=== PATIENT | female | born 1945 | race Caucasian/White ===

== ENCOUNTER 2017-04-17 01:51 | Emergency (ER) | payer MEDICARE, SELFPAY ==
[2017-04-17] MEDS ORDERED: Ketorolac Tromethamine 30 MG/ML VIAL ONE (02:13)
== END 2017-04-17 02:26 | disposition home or self-care (01) ==
LOC: MADERS 01:51
DX: M17.11 Unilateral primary osteoarthritis, right knee (principal); I25.10 Atherosclerotic heart disease of native coronary artery without angina pectoris; F17.210 Nicotine dependence, cigarettes, uncomplicated
CPT/HCPCS: 96372; J1885

== ENCOUNTER 2017-04-28 23:37 | Emergency (ER) | payer MEDICARE, SELFPAY ==
[~2017-04-28 23:37] MED LIST: Donnatal Elixir 16.2 MG/5 ML UDCUP ONE
[2017-04-29] MEDS ORDERED: Mag-Al Plus 1200 MG/1200 MG/120 MG/30 ML UDCUP ONE (00:40)
[2017-04-29] MEDS ORDERED: Lidocaine Viscous Sol 2% 15 ml UD Cup ONE (00:40)
[2017-04-29] MEDS ORDERED: Donnatal Elixir 16.2 MG/5 ML UDCUP ONE (00:40)
== END 2017-04-29 00:50 | disposition home or self-care (01) ==
LOC: MADERS 23:37
DX: I25.10 Atherosclerotic heart disease of native coronary artery without angina pectoris (principal); E03.9 Hypothyroidism, unspecified; E78.5 Hyperlipidemia, unspecified; F17.210 Nicotine dependence, cigarettes, uncomplicated
CPT/HCPCS: 93005; 99407

== ENCOUNTER 2017-08-30 18:40 | Emergency (ER) | payer MEDICARE ==
--- NOTE | 2017-08-30 20:13 | RAD ---
RIGHT ANKLE THREE VIEWS: INDICATIONS: Right ankle pain. Joint pain. FINDINGS: there is soft tissue swelling, notably at the medial aspect. The mortise is intact. Enthesophyte fo rmation at the plantar aspect of the calcaneus is seen. No fracture. IMPRESSION: 1. No acute osseous abnormality of the right ankle. 2. There is soft tissue swelling. Correlate clinically. POS: JESSICA
[2017-08-30] MEDS ORDERED: HYDROcodone/Acetaminophen 5/325 mg Tablet ONE (20:22)
[2017-08-30 20:44] LABS: Hemoglobin 13.8 g/dL (12.0-16.0); Lymphocytes 17 % (21-51); MDiff Complete? YES; Mean Corpuscular HGB CONC 33.1 g/dL (32.0-36.0); Mean Corpuscular Hemoglobin 30.9 pg (27.0-31.0); Mean Corpuscular Volume 93.2 fl (81.0-99.0); Mean Platelet Volume 6.8 fL (7.4-10.4); Monocytes 3 % (0-10); Neutrophil 80 % (42-75); PLT Morphology Comment Appears Adequate; Platelet Count 327 thou/uL (130-400); RBC Distribution Width 12.6 % (11.5-14.5); Red Blood Cell (RBC) Count 4.48 mill/uL (4.20-5.40); White Blood Cell (WBC) Count 11.9 thou/uL (4.8-10.8)
[2017-08-30 20:50] LABS: Anion Gap 21 mmol/L (10-20); Bilirubin, Total 0.9 mg/dL (0.2-1.2); Calc. Creatinine Clearance 0 mL/min (70-130); Calcium 9.4 mg/dL (7.8-10.44); Carbon Dioxide 18 mmol/L (23-31); Chloride 103 mmol/L (98-107); Estimated GFR-MDRD 36; Glucose 106 mg/dL (83-110); Potassium 5.1 mmol/L (3.5-5.1); Protein, Total 7.7 g/dL (5.8-8.1); Sodium 137 mmol/L (136-145)
[2017-08-30 20:51] LABS: Globulin 3.7 g/dL (2.4-3.5)
[2017-08-30 20:52] LABS: ALT (SGPT) 15 U/L (8-55); AST (SGOT) 28 U/L (5-34); Alkaline Phosphatase 57 U/L (40-150); BUN (Urea Nitrogen) 29 mg/dL (9.8-20.1)
== END 2017-08-30 20:35 | disposition home or self-care (01) ==
LOC: MADERS 18:40
DX: M25.571 Pain in right ankle and joints of right foot (principal); E03.9 Hypothyroidism, unspecified; E78.5 Hyperlipidemia, unspecified; I25.10 Atherosclerotic heart disease of native coronary artery without angina pectoris; F17.210 Nicotine dependence, cigarettes, uncomplicated; Z79.82 Long term (current) use of aspirin; Z79.899 Other long term (current) drug therapy; Z79.891 Long term (current) use of opiate analgesic
CPT/HCPCS: 36415; 80053; 85025; 85652

== ENCOUNTER 2018-02-08 08:03 | Emergency (ER) | payer MEDICARE ==
[2018-02-08 08:48] LABS: Bilirubin Negative (Negative); Blood, Urine Trace (Negative); Glucose, Urine (Dipstick) Negative (Negative); Leukocyte Negative (Negative); Nitrite Positive (Negative); Protein, Urine (Dipstick) Negative (Neg-Trace); pH, Urine 5.5 (5.0-9.0)
[2018-02-08 08:52] LABS: Clarity Hazy (Clear)
[2018-02-08 08:53] LABS: Bacteria/HPF 4+ HPF (None Seen); RBC/HPF 0-3 HPF (0-3); WBC/HPF 0-3 HPF (0-3)
[2018-02-08 08:58] LABS: Band 3 % (5-11); Hemoglobin 15.4 g/dL (12.0-16.0); Large Platelets SLIGHT; Lymphocytes 11 % (21-51); MDiff Complete? YES; Mean Corpuscular HGB CONC 32.1 g/dL (32.0-36.0); Mean Corpuscular Hemoglobin 29.2 pg (27.0-31.0); Mean Corpuscular Volume 90.9 fL (78.0-98.0); Mean Platelet Volume 7.9 fL (7.4-10.4); Monocytes 4 % (0-10); Neutrophil 82 % (42-75); PLT Morphology Comment Appears Adequate; Platelet Count 327 thou/uL (130-400); RBC Distribution Width 13.1 % (11.5-14.5); Red Blood Cell (RBC) Count 5.27 mill/uL (4.20-5.40); White Blood Cell (WBC) Count 19.4 thou/uL (4.8-10.8)
[2018-02-08 08:59] LABS: ALT (SGPT) 12 U/L (8-55); AST (SGOT) 14 U/L (5-34); Albumin 4.1 g/dL (3.4-4.8); Alkaline Phosphatase 72 U/L (40-150); Anion Gap 19 mmol/L (10-20); BUN (Urea Nitrogen) 15 mg/dL (9.8-20.1); Bilirubin, Total 1.3 mg/dL (0.2-1.2); Calc. Creatinine Clearance 0 mL/min (70-130); Calcium 9.9 mg/dL (7.8-10.44); Carbon Dioxide 22 mmol/L (23-31); Chloride 100 mmol/L (98-107); Estimated GFR-MDRD 47; Globulin 3.4 g/dL (2.4-3.5); Glucose 135 mg/dL (83-110); Potassium 3.9 mmol/L (3.5-5.1); Protein, Total 7.5 g/dL (6.0-8.3); Sodium 137 mmol/L (136-145)
[2018-02-08] MEDS ORDERED: Sodium Chloride 0.9% 1,000 ML BAG ONE (09:00)
[2018-02-08] MEDS ORDERED: Promethazine HCl 25 MG/ML VIAL ONE (09:39)
--- NOTE | 2018-02-08 11:26 | CT ---
CT OF ABDOMEN AND PELVIS PERFORMED WITH INTRAVENOUS CONTRAST ENHANCEMENT: HISTORY: Abdominal pain. Left renal mass noted on previous CT examination in 2016 for which the patient has n ot followed up. COMPARISON: A 04/22/2015 CT study. FINDINGS: The lung bases are clear. A small hiatal hernia is noted. The liver and spleen are normal in size a nd appearance. The pancreas shows no mass or ductal dilatation. The gallbladder is moderately diste nded. There is a small air density seen along the greater curvature of the stomach probably related to a tiny diverticulum. It was present on the previous CT study. Right and left adrenal glands are normal. The right kidney shows some cortical scarring in the mid t o lower pole region. There is a large enhancing left renal mass. It measures approximately 7.6 cm i n diameter, which is a slight increase in size from the previous exam when it was closer to 7.2 cm. There is no evidence of any renal vein invasion. The left renal vein is fairly well opacified. Ther e are some small subcentimeter periaortic lymph nodes present. There is no significant mesenteric ad enopathy present. There is some left-sided perinephric fat stranding. Colonic diverticulosis is see n. Moderate atherosclerotic changes are seen within the aorta, but no aneurysm. 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 CT OF PELVIS PERFORMED WITH COTNRAST ENHANCEMENT: Sigmoid diverticulosis is noted. No inflammatory process. No significant adenopathy or mass . The appendix is air filled and normal in appearance. Review of osseous structures shows arthritic changes of the spine no active disease hips. IMPRESSION: 1. Approximately 7.6 cm enhancing left renal mass highly suspicious for renal cell carcinoma, slight ly increased in size as compared to the 2016 study when it measured closer to 7.2 cm. 2. Gallbladder distention. No obvious gallstones and no evidence of ductal dilatation. Ultrasound may be helpful in further assessment. 3. Cortical scarring involving the right kidney. 4. Colonic diverticulosis. POS: FRANCIA
== END 2018-02-08 11:11 | disposition home or self-care (01) ==
LOC: MADERS 08:03
DX: N28.89 Other specified disorders of kidney and ureter (principal); R10.13 Epigastric pain; R11.2 Nausea with vomiting, unspecified; R73.9 Hyperglycemia, unspecified; E03.9 Hypothyroidism, unspecified; E78.5 Hyperlipidemia, unspecified; F41.9 Anxiety disorder, unspecified; F17.210 Nicotine dependence, cigarettes, uncomplicated; Z79.82 Long term (current) use of aspirin; Z79.899 Other long term (current) drug therapy; Z79.891 Long term (current) use of opiate analgesic
CPT/HCPCS: 36415; 74177; 80053; 81003; 81015; 82150; 83690; 85025; 87077; 87086; 87186; 96365; J2550; J7050

== ENCOUNTER 2018-06-18 00:49 | Emergency (ER) | payer MEDICARE | END 2018-06-18 01:39 | disposition home or self-care (01) | LOC: MADERS 00:49 | DX: K29.00 Acute gastritis without bleeding (principal); E03.9 Hypothyroidism, unspecified; E78.5 Hyperlipidemia, unspecified; I25.10 Atherosclerotic heart disease of native coronary artery without angina pectoris; I10 Essential (primary) hypertension; F41.9 Anxiety disorder, unspecified; F17.210 Nicotine dependence, cigarettes, uncomplicated; Z79.899 Other long term (current) drug therapy; Z79.82 Long term (current) use of aspirin | CPT/HCPCS: 93005 ==

== ENCOUNTER 2018-06-25 21:21 | Emergency (ER) | payer MEDICARE | END 2018-06-25 22:40 | disposition home or self-care (01) | LOC: MADERS 21:21 | DX: L03.116 Cellulitis of left lower limb (principal); M79.81 Nontraumatic hematoma of soft tissue; E03.9 Hypothyroidism, unspecified; E78.5 Hyperlipidemia, unspecified; I10 Essential (primary) hypertension; I25.10 Atherosclerotic heart disease of native coronary artery without angina pectoris; F41.9 Anxiety disorder, unspecified; F17.210 Nicotine dependence, cigarettes, uncomplicated; Z79.82 Long term (current) use of aspirin; Z79.891 Long term (current) use of opiate analgesic; Z79.899 Other long term (current) drug therapy | CPT/HCPCS: 99282 ==

== ENCOUNTER 2018-08-16 00:55 | Emergency (ER) | payer MEDICARE | END 2018-08-16 01:30 | disposition home or self-care (01) | LOC: MADERS 00:55 | DX: R21 Rash and other nonspecific skin eruption (principal); F41.9 Anxiety disorder, unspecified; E78.5 Hyperlipidemia, unspecified; E03.9 Hypothyroidism, unspecified; I10 Essential (primary) hypertension; F17.210 Nicotine dependence, cigarettes, uncomplicated; Z79.891 Long term (current) use of opiate analgesic; Z79.82 Long term (current) use of aspirin; Z79.899 Other long term (current) drug therapy | CPT/HCPCS: 99282 ==

== ENCOUNTER 2018-11-02 20:00 | Emergency (ER) | payer MEDICARE ==
--- NOTE | 2018-11-02 21:25 | CT ---
CT FACE: 11/02/2018 HISTORY: Fall. Trauma. Pain. COMPARISON: None. TECHNIQUE: Axial CT imaging at 2.5 mm intervals through the face with coronal and sagittal reformatted imaging. FINDINGS: There is mild soft tissue swelling in the medial right supraorbital region. The frontal sinuses, ethmoid air cells, sphenoid sinuses, maxillary sinuses, and imaged mastoid air c ells are unremarkable. There is atherosclerotic calcification of the cavernous carotid arteries. No evidence for temporomandibular joint dislocation on either side. No acute mandibular fracture is seen. The nasal bones, zygomatic arches, and pterygoid plates are intact. There is incidental gas seen in the left parotid gland and parotid duct. There is no displaced fract ure or evidence of dislocation. There is atherosclerotic calcification of the carotid system bilater ally, incompletely assessed on this exam. IMPRESSION: Incidental findings, as detailed above. No acute osseous abnormality. POS: JESSICA
== END 2018-11-02 21:00 | disposition home or self-care (01) ==
LOC: MADERS 20:00
DX: S00.83XA Contusion of other part of head, initial encounter (principal); S80.01XA Contusion of right knee, initial encounter; S00.33XA Contusion of nose, initial encounter; W01.0XXA Fall on same level from slipping, tripping and stumbling without subsequent striking against object, initial encounter; E03.9 Hypothyroidism, unspecified; E78.5 Hyperlipidemia, unspecified; I10 Essential (primary) hypertension; I25.10 Atherosclerotic heart disease of native coronary artery without angina pectoris; F41.9 Anxiety disorder, unspecified; F17.210 Nicotine dependence, cigarettes, uncomplicated; Z79.82 Long term (current) use of aspirin; Z79.899 Other long term (current) drug therapy
CPT/HCPCS: 70486

== ENCOUNTER 2019-09-23 00:42 | Emergency (ER) | payer MEDICARE ==
[2019-09-23] MEDS ORDERED: Mag-Al Plus 1200 MG/1200 MG/120 MG/30 ML UDCUP ONE (01:21)
[2019-09-23] MEDS ORDERED: Lidocaine Viscous Sol 2% 15 ml UD Cup ONE (01:21)
--- NOTE | 2019-09-23 07:52 | RAD ---
PA CHEST RADIOGRAPHS WITH 2 VIEWS RIGHT RIBS: DATE: 09/23/2019. PROVIDED CLINICAL HISTORY: Chest pain status post injury. FINDINGS: No comparisons. Cardiac silhouette appears enlarged. Prominence of the deb bilaterally which may r eflect prominence of the hilar vessels. Median sternotomy changes are seen. Atherosclerosis is demo nstrated. No focal consolidation, pleural fluid, or pneumothorax apparent. There is no evidence for displaced right-sided rib fracture. IMPRESSION: No evidence for displaced right-sided rib fracture, pleural fluid, or pneumothorax. POS: ELOY
== END 2019-09-23 02:12 | disposition home or self-care (01) ==
LOC: MADERS 00:42
DX: S20.211A Contusion of right front wall of thorax, initial encounter (principal); R10.13 Epigastric pain; E03.9 Hypothyroidism, unspecified; E78.5 Hyperlipidemia, unspecified; I25.10 Atherosclerotic heart disease of native coronary artery without angina pectoris; E78.00 Pure hypercholesterolemia, unspecified; I10 Essential (primary) hypertension; F41.9 Anxiety disorder, unspecified; F17.210 Nicotine dependence, cigarettes, uncomplicated; Z79.82 Long term (current) use of aspirin; Z79.891 Long term (current) use of opiate analgesic; Z79.899 Other long term (current) drug therapy; W18.30XA Fall on same level, unspecified, initial encounter

== ENCOUNTER 2019-09-23 06:43 | Emergency (ER) | payer MEDICARE ==
[2019-09-23 07:32] LABS: #Basophils 0.2 thou/uL (0.0-0.2); #Eosinphils 0.2 thou/uL (0.0-0.7); #Lymphocytes 2.4 thou/uL (1.20-3.40); #Monocytes 0.6 thou/uL (0.11-0.59); #Neutrophils 12.8 thou/uL (1.40-6.50); %Basophils 1.1 % (0.0-1.0); %Eosinophils 1.1 % (0.0-10.0); %Monocytes 3.8 % (0.0-10.0); %Neutrophils 79.1 % (42.0-75.0); Hemoglobin 14.3 g/dL (12.0-16.0); Mean Corpuscular HGB CONC 30.5 g/dL (32.0-36.0); Mean Corpuscular Volume 91.5 fL (78.0-98.0); Mean Platelet Volume 7.4 fL (7.4-10.4); Platelet Count 375 thou/uL (130-400); RBC Distribution Width 14.2 % (11.5-14.5); White Blood Cell (WBC) Count 16.2 thou/uL (4.8-10.8)
[2019-09-23] MEDS ORDERED: Aspirin Chewable 81 MG TAB ONE (07:34)
[2019-09-23] MEDS ORDERED: Nitroglycerin 0.4 MG TAB 1 EACH ONE (07:34)
[2019-09-23] MEDS ORDERED: Iopamidol 370 76% 100 ML VIAL ONE (07:35)
[2019-09-23 07:37] LABS: INR-International Normal Ratio 1.1; PTT 49.4 sec (22.9-36.1); Prothrombin Time 14.1 sec (12.0-14.7)
--- NOTE | 2019-09-23 07:42 | RAD ---
EXAM: Single view of the chest HISTORY: Chest pain COMPARISON: None FINDINGS: Single view of the chest shows an enlarged cardiomediastinal silhouette. Patient is status post sternotomy. There may be small bilateral pleural effusions. The bones are unremarkable. IMPRESSION: Cardiomegaly and small bilateral pleural effusions.
[2019-09-23 07:46] LABS: ALT (SGPT) 13 U/L (8-55); AST (SGOT) 16 U/L (5-34); Alkaline Phosphatase 97 U/L (40-110); Anion Gap 19 mmol/L (10-20); BUN (Urea Nitrogen) 42 mg/dL (9.8-20.1); Bilirubin, Total 0.6 mg/dL (0.2-1.2); CK (CPK) 15 U/L (29-168); Calc. Creatinine Clearance 0 mL/min (70-130); Calcium 9.2 mg/dL (7.8-10.44); Carbon Dioxide 24 mmol/L (23-31); Chloride 100 mmol/L (98-107); Estimated GFR-MDRD 24; Globulin 3.6 g/dL (2.4-3.5); Glucose 123 mg/dL (83-110); Lipase 23 U/L (8-78); Potassium 4.4 mmol/L (3.5-5.1); Protein, Total 7.6 g/dL (6.0-8.3); Sodium 139 mmol/L (136-145)
[2019-09-23 07:52] LABS: D-Dimer Test 2.88 *mcg/mL (0.27-0.43)
[2019-09-23] MEDS ORDERED: Pantoprazole 40 MG VIAL ONE (08:04)
[2019-09-23] MEDS ORDERED: Sodium Chloride 0.9% 1,000 ML ONE ×2 (08:04→11:09)
--- NOTE | 2019-09-23 10:04 | CT ---
CT ANGIOGRAM CHEST AND ABDOMEN WITH IV CONTRAST AND 3D MIP RECONSTRUCTIONS: DATE: 09/23/2019. PROVIDED CLINICAL HISTORY: Chest pain. FINDINGS: Correlation is made with CT abdomen and pelvis 02/08/2018. There is extensive irregular mural plaque and atherosclerotic vascular calcification involving the th oracic aorta, without evidence for dissection or other acute abnormality. There is filling defect wi th the left atrial appendage suspicious for thrombus. The pulmonary arterial system is insufficientl y opacified distally for comment, without evidence for central thrombus. Vascular calcification incl uding coronary calcium. 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 The lungs are free of significant opacity. There is no pleural fluid or pneumothorax apparent. Ther e is a polypoid mass-like focus of density within the nondependent portion of the trachea in the xiao on of the thoracic inlet measuring about 1.1 cm. The airway appears otherwise patent and of normal c aliber. Interval enlargement of previously described heterogeneous enhancing left renal mass. This measures about 8.3 cm in craniocaudal dimension and about 7.8 cm in transverse dimension, increased in size fr om prior. The liver, right kidney, spleen, pancreas, and adrenal glands appear unremarkable. There is moderate gallbladder distention without overt pericholecystic inflammatory change. There is extensive atherosclerotic vascular calcification and irregular mural plaque involving the ab dominal aorta and its branches. 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 There is no bowel dilatation, free fluid, or lymph node enlargement apparent. The osseous structures demonstrate no concerning lytic or blastic lesions. Remote compression deform ity is seen involving the superior end plate of L4. Extensive spinal degenerative changes are seen. IMPRESSION: 1. Extensive atherosclerotic vascular disease as described without evidence for aortic dissection. 2. Filling defect within the left atrial appendage suspicious for thrombus. 3. Interval enlargement of heterogeneous enhancing left renal mass compatible with malignancy. 4. Moderate gallbladder distention. Consider ultrasound correlation if indicated. 5. Filling defect in the anterior trachea at the level of the thoracic inlet, incompletely character ized. This could reflect secretions or mass. Direct visualization is recommended. POS: ELOY
[2019-09-23 10:40] LABS: Bilirubin Negative (Negative); Blood, Urine Negative (Negative); Clarity Clear (Clear); Glucose, Urine (Dipstick) Negative (Negative); Leukocyte Negative (Negative); Nitrite Negative (Negative); Protein, Urine (Dipstick) Negative (Neg-Trace)
[2019-09-23] MEDS ORDERED: Enoxaparin Sodium 80 MG/0.8 ML SYRINGE ONE (11:09)
== END 2019-09-23 13:36 | disposition short-term general hospital (02) ==
LOC: MADERS 06:43
DX: I24.9 Acute ischemic heart disease, unspecified (principal); I74.9 Embolism and thrombosis of unspecified artery; K82.8 Other specified diseases of gallbladder; I95.9 Hypotension, unspecified; D72.829 Elevated white blood cell count, unspecified; N28.89 Other specified disorders of kidney and ureter; R09.02 Hypoxemia; E03.9 Hypothyroidism, unspecified; E78.5 Hyperlipidemia, unspecified; E78.00 Pure hypercholesterolemia, unspecified; I10 Essential (primary) hypertension; I25.10 Atherosclerotic heart disease of native coronary artery without angina pectoris; F41.9 Anxiety disorder, unspecified; F17.210 Nicotine dependence, cigarettes, uncomplicated; Z79.82 Long term (current) use of aspirin; Z79.899 Other long term (current) drug therapy
CPT/HCPCS: 36415; 36556; 71045; 71275; 72191; 74175; 80053; 81003; 82150; 82550; 83605; 83690; 84484; 85025; 85379; 85610; 85730; 87040; 93005; 96360; 96361; 96372; 96374; C9113; J1650; J7050; Q9967

== ENCOUNTER 2020-07-14 08:45 | Emergency (ER) | payer OTHER, MEDICARE ==
[2020-07-14] MEDS ORDERED: Rabies Vaccine Human 2.5 UNITS VIAL ONE (09:36)
[2020-07-14] MEDS ORDERED: Bacitracin 1 PK ONE (09:55)
[2020-07-14] MEDS ORDERED: Amoxicillin/Potassium Clav 875 MG TAB ONE (09:55)
== END 2020-07-14 10:18 | disposition home or self-care (01) ==
LOC: MADERS 08:45
DX: S81.812A Laceration without foreign body, left lower leg, initial encounter (principal); S81.832A Puncture wound without foreign body, left lower leg, initial encounter; E78.5 Hyperlipidemia, unspecified; E78.00 Pure hypercholesterolemia, unspecified; E03.9 Hypothyroidism, unspecified; I10 Essential (primary) hypertension; F17.210 Nicotine dependence, cigarettes, uncomplicated; Z23 Encounter for immunization; Z79.82 Long term (current) use of aspirin; Z79.899 Other long term (current) drug therapy; W54.0XXA Bitten by dog, initial encounter
CPT/HCPCS: 90376; 90471; 90675; 96372

== ENCOUNTER → 2020-07-18 | Day surgery (SDC) | payer MEDICARE ==
[~2020-07-18] MED LIST changes: -Donnatal Elixir 16.2 MG/5 ML UDCUP ONE; +Rabies Vaccine Human 2.5 UNITS VIAL ONE
== END ==
LOC: MADER/OP 15:02
PROVIDERS: ATTEND Pharmacist Pharmacotherapy
DX: Z23 Encounter for immunization (principal); Z88.7 Allergy status to serum and vaccine; Z88.8 Allergy status to other drugs, medicaments and biological substances
CPT/HCPCS: 90471; 90675; 96372

== ENCOUNTER → 2020-07-21 | Day surgery (SDC) | payer MEDICARE | LOC: MADER/OP 16:20 | PROVIDERS: ATTEND Emergency Medicine | DX: Z23 Encounter for immunization (principal); Z88.7 Allergy status to serum and vaccine; Z88.8 Allergy status to other drugs, medicaments and biological substances | CPT/HCPCS: 90675; 96372 ==

== ENCOUNTER 2020-07-23 20:43 | Emergency (ER) | payer MEDICARE ==
[2020-07-23] MEDS ORDERED: Bacitracin 1 PK ONE (21:00)
[2020-07-23] MEDS ORDERED: Amoxicillin/Potassium Clav 875 MG TAB ONE (21:00)
== END 2020-07-23 21:18 | disposition home or self-care (01) ==
LOC: MADERS 20:43
DX: S81.852A Open bite, left lower leg, initial encounter (principal); L03.116 Cellulitis of left lower limb; E78.5 Hyperlipidemia, unspecified; E78.00 Pure hypercholesterolemia, unspecified; G62.9 Polyneuropathy, unspecified; I10 Essential (primary) hypertension; E03.9 Hypothyroidism, unspecified; I25.10 Atherosclerotic heart disease of native coronary artery without angina pectoris; F17.210 Nicotine dependence, cigarettes, uncomplicated; Z85.528 Personal history of other malignant neoplasm of kidney; W55.01XA Bitten by cat, initial encounter
CPT/HCPCS: 99283

== ENCOUNTER → 2020-07-28 | Day surgery (SDC) | payer MEDICARE | LOC: MADER/OP 17:46 | PROVIDERS: ATTEND Emergency Medicine | DX: Z23 Encounter for immunization (principal); Z88.7 Allergy status to serum and vaccine; Z88.8 Allergy status to other drugs, medicaments and biological substances | CPT/HCPCS: 90471; 90675 ==

== ENCOUNTER 2020-09-02 22:06 | Emergency (ER) | payer MEDICARE ==
[2020-09-02 22:35] LABS: #Basophils 0.1 thou/uL (0.0-0.2); #Eosinphils 0.2 thou/uL (0.0-0.7); #Lymphocytes 2.3 thou/uL (1.20-3.40); #Monocytes 0.9 thou/uL (0.11-0.59); #Neutrophils 5.4 thou/uL (1.40-6.50); %Basophils 1.4 % (0.0-1.0); %Eosinophils 2.5 % (0.0-10.0); %Lymphocytes 25.5 % (21.0-51.0); %Monocytes 9.7 % (0.0-10.0); Hemoglobin 11.7 g/dL (12.0-16.0); Mean Corpuscular HGB CONC 30.2 g/dL (32.0-36.0); Mean Corpuscular Hemoglobin 27.2 pg (27.0-31.0); Mean Corpuscular Volume 90.1 fL (78.0-98.0); Mean Platelet Volume 6.9 fL (7.4-10.4); Platelet Count 483 thou/uL (130-400); RBC Distribution Width 15.7 % (11.5-14.5); White Blood Cell (WBC) Count 8.8 thou/uL (4.8-10.8)
[2020-09-02 23:01] LABS: ALT (SGPT) 25 U/L (8-55); AST (SGOT) 60 U/L (5-34); Albumin 3.1 g/dL (3.4-4.8); Alkaline Phosphatase 168 U/L (40-110); Anion Gap 17 mmol/L (10-20); BUN (Urea Nitrogen) 30 mg/dL (9.8-20.1); Bilirubin, Total 0.8 mg/dL (0.2-1.2); Calc. Creatinine Clearance 0 mL/min (70-130); Carbon Dioxide 22 mmol/L (23-31); Chloride 101 mmol/L (98-107); Globulin 4.5 g/dL (2.4-3.5); Glucose 126 mg/dL (83-110); Magnesium 1.9 mg/dL (1.6-2.6); Potassium 4.3 mmol/L (3.5-5.1); Protein, Total 7.6 g/dL (5.8-8.1); Sodium 136 mmol/L (136-145)
[2020-09-02] MEDS ORDERED: Aspirin 325 MG TAB ONE (23:12)
== END 2020-09-02 23:23 | disposition home or self-care (01) ==
LOC: MADERS 22:06
DX: F43.0 Acute stress reaction (principal); F41.9 Anxiety disorder, unspecified; E78.5 Hyperlipidemia, unspecified; E78.00 Pure hypercholesterolemia, unspecified; E03.9 Hypothyroidism, unspecified; I25.10 Atherosclerotic heart disease of native coronary artery without angina pectoris; G62.9 Polyneuropathy, unspecified; I10 Essential (primary) hypertension; F17.210 Nicotine dependence, cigarettes, uncomplicated
CPT/HCPCS: 71045; 80053; 83735; 83880; 84443; 84484; 85025; 93005